=== PATIENT | female | born 1985 | race Caucasian/White ===

== ENCOUNTER 2018-11-01 07:03 | Emergency (ER) | payer MEDICAID ==
[~2018-11-01] VITALS: Ht 162.6 cm; Wt 81.6 kg
[~2018-11-01 07:03] MED LIST: CLIN300C11 PO
[2018-11-01 07:09] VITALS: BP_SYST 11
--- NOTE | 2018-11-01 07:28 | NUR ---
Patient to ER bed 5 to gown for evaluation. Side rails up. Report given to Tara MONTERO.
--- NOTE | 2018-11-01 07:30 | NUR ---
Patient bib her boyfriend. C/o sore throat x 5 days, patient stated that she thinks she has strep throat. Patient also stated that the pain radiates to her right ear. Also, stated that she has been unable to drink or eat. Current vs are 140/77, 98.8, 18, 140/79. Will continue to monitor.
--- NOTE | 2018-11-01 07:36 | NUR ---
ER at bedside examining patient.
--- NOTE | 2018-11-01 07:42 | NUR ---
Patient is currently eating breakfast. Stated that she is not interested in speaking with a social insurance analyst. Appearance is clean. Stated that she only wants her throart pain to go away.
[2018-11-01] MEDS: IPRATROPIUM/ALBUTEROL SULFATE 3 ML AMPUL.NEB (DUONEB) INH ONE (08:06)
[2018-11-01 08:12] LABS: STREPTOCOCCUS A SCREEN (RAPID) NEGATIVE (NEGATIVE)
[2018-11-01 08:25] LABS: INFLUENZA A&B ANTIGEN SCREEN NEGATIVE FOR A & B (NEGATIVE)
[2018-11-01] MEDS: AZITHROMYCIN 250 MG TABLET PO ONE (08:48)
--- NOTE | 2018-11-01 08:50 | NUR ---
Patient was given a sandwich. She has clean clothes and temporary housing. Transportation was arranged for her and her boyfriend. Patient stated that she is able to fill all prescriptions given.
[2018-11-01 09:03] VITALS: BP_SYST 140
--- NOTE | 2018-11-01 09:04 | NUR ---
Patient given written and verbal discharge instructions and verbalizes understanding. ER MD discussed with patient the results and treatment provided. Patient in stable condition. ID arm band removed. Rx of Z-pack and albuterol given. Patient educated on pain management and to follow up with PMD. Pain Scale .Opportunity for questions provided and answered. Medication side effect fact sheet provided.
== END 2018-11-01 09:02 | disposition home or self-care (01) ==
LOC: SED 07:03
DX: O99.511 Diseases of the respiratory system complicating pregnancy, first trimester (principal); O26.891 Other specified pregnancy related conditions, first trimester; J20.9 Acute bronchitis, unspecified; H66.90 Otitis media, unspecified, unspecified ear; F17.210 Nicotine dependence, cigarettes, uncomplicated; I10 Essential (primary) hypertension; Z88.0 Allergy status to penicillin; Z3A.01 Less than 8 weeks gestation of pregnancy
CPT/HCPCS: 71045; 86403; 86710; 87081; 94664; 99284; J7620; Q0144; 36415

== ENCOUNTER 2019-10-25 06:44 | Inpatient (IN) | payer MEDICAID ==
[~2019-10-25] VITALS: Ht 165.1 cm; Wt 90.3 kg
[2019-10-25 06:55] VITALS: BP_SYST 159
[2019-10-25] MEDS ORDERED: IPRATROPIUM/ALBUTEROL SULFATE 3 ML AMPUL.NEB (DUONEB) INH ONE (09:00)
[2019-10-25] MEDS ORDERED: NACL 0.9% 1,000 ML IV ONE (12:00)
[2019-10-25 12:33] LABS: BASOPHILS # (AUTO) 0.1 K/uL (0.0-0.2); BASOPHILS % (AUTO) 0.9 % (0.0-2.0); EOSINOPHILS # (AUTO) 0.1 K/uL (0.0-0.4); HEMATOCRIT 26.2 % (36-48); HEMOGLOBIN 7.9 g/dL (12.0-16.0); LYMPHOCYTES # (AUTO) 1.8 K/uL (1.0-5.5); LYMPHOCYTES % (AUTO) 26.5 % (20.5-51.5); MEAN CORPUSCULAR HEMOGLOBIN 19 pg (27-31); MEAN CORPUSCULAR HGB CONC 30 % (32-36); MEAN CORPUSCULAR VOLUME 62 fL (79.0-98.0); MONOCYTES # (AUTO) 0.6 K/uL (0.0-1.0); MONOCYTES % (AUTO) 8.8 % (1.7-9.3); NEUTROPHILS # (AUTO) 4.4 K/uL (1.8-7.7); NEUTROPHILS % (AUTO) 62.8 % (40.0-70.0); PLATELET COUNT (AUTO) 300 K/uL (130-430); RED BLOOD CELL COUNT(AUTO) 4.23 MIL/uL (4.2-6.2); RED CELL DISTRIBUTION WIDTH 17.9 % (9.0-15.0); WHITE BLOOD COUNT (AUTO) 6.9 K/uL (4.8-10.8)
[2019-10-25] MEDS: AZITHROMYCIN 250 MG in NS 250 ML IV ONE ×2 (12:44→13:16)
[2019-10-25 12:50] LABS: CALCIUM 8.6 mg/dL (8.4-11.0); CREATININE 0.67 mg/dL (0.55-1.30); POTASSIUM 3.7 mmol/L (3.5-5.1)
[2019-10-25 12:55] LABS: ALBUMIN 3.3 g/dL (3.4-4.8); TOTAL BILIRUBIN 0.3 mg/dL (0.0-1.0)
[2019-10-25] MEDS ORDERED: AZITHROMYCIN 500 MG/VIAL (ZITHROMAX) IV ONE (12:59)
[2019-10-25 13:48] LABS: TOTAL IRON BIND. CAPACITY 411 ug/dL (250-450)
[2019-10-25] MEDS ORDERED: NICOTINE 21 MG/24 HR PATCH.TD24 TD ONE (14:00)
[2019-10-25] MEDS ORDERED: MULTIVITAMINS TAB 1 TABLET PO ONE (14:00)
[2019-10-25] MEDS ORDERED: AZITHROMYCIN 1,000 MG in NS 250 ML IV ONE ×2 (14:00→15:30)
[2019-10-25] MEDS ORDERED: cefTRIAXone 1 GM in D5W 50 ML IV ONE (15:00)
[2019-10-25 15:39] VITALS: BP_SYST 129
[2019-10-25] MEDS ORDERED: FLU VACC QS2019-20 36MOS UP/PF 60 MCG/0.5 ML SYRINGE I.M. PRN (15:45)
[2019-10-25 16:23] VITALS: BP_SYST 120
[2019-10-25] MEDS: guaiFENesin/DEXTROMETHORPHAN 10 ML UDC PO PRN (16:23)
[2019-10-25] MEDS: ACETAMINOPHEN 325 MG TABLET PO PRN (16:23)
[2019-10-25] MEDS ORDERED: IPRATROPIUM/ALBUTEROL SULFATE 3 ML AMPUL.NEB (DUONEB) INH PRN (17:00)
[2019-10-25] MEDS ORDERED: IPRATROPIUM/ALBUTEROL SULFATE 3 ML AMPUL.NEB (DUONEB) INH SCH (17:00)
[2019-10-25 17:13] VITALS: BP_SYST 129
[2019-10-25] MEDS: SOD FERRIC GLUC COMPLEX/SUC 125 MG in NS 100 ML IV SCH (18:03)
[2019-10-25] MEDS: IPRATROPIUM/ALBUTEROL SULFATE 3 ML AMPUL.NEB (DUONEB) INH SCH (19:50)
[2019-10-25 20:00] VITALS: BP_SYST 124
[2019-10-25] MEDS: MULTIVITAMINS TAB 1 TABLET PO SCH (22:05)
[2019-10-26 00:31] VITALS: BP_SYST 120
[2019-10-26] MEDS: IPRATROPIUM/ALBUTEROL SULFATE 3 ML AMPUL.NEB (DUONEB) INH SCH ×4 (00:35→19:45)
[2019-10-26] MEDS: ACETAMINOPHEN 325 MG TABLET PO PRN (04:02)
[2019-10-26] MEDS: guaiFENesin/DEXTROMETHORPHAN 10 ML UDC PO PRN (04:09)
[2019-10-26 08:10] VITALS: BP_SYST 113
[2019-10-26] MEDS: MULTIVITAMINS TAB 1 TABLET PO SCH ×2 (08:48→20:34)
[2019-10-26] MEDS: cefTRIAXone 1 GM in D5W 50 ML IV SCH (08:48)
[2019-10-26] MEDS: NICOTINE 21 MG/24 HR PATCH.TD24 TD SCH (08:48)
[2019-10-26] MEDS ORDERED: cefTRIAXone 1 GM in D5W 50 ML IV SCH (09:00)
[2019-10-26 12:50] VITALS: BP_SYST 118
[2019-10-26] MEDS: SOD FERRIC GLUC COMPLEX/SUC 125 MG in NS 100 ML IV SCH (14:48)
[2019-10-26 16:22] VITALS: BP_SYST 122
[2019-10-26 20:30] VITALS: BP_SYST 121
[2019-10-27] MEDS: IPRATROPIUM/ALBUTEROL SULFATE 3 ML AMPUL.NEB (DUONEB) INH SCH ×3 (01:00→13:45)
[2019-10-27 01:01] VITALS: BP_SYST 123
[2019-10-27 06:33] LABS: ALBUMIN 2.9 g/dL (3.4-4.8); CALCIUM 8.8 mg/dL (8.4-11.0); CREATININE 0.6 mg/dL (0.55-1.30)
[2019-10-27 06:47] LABS: BASOPHILS % (AUTO) 0.5 % (0.0-2.0); EOSINOPHILS # (AUTO) 0.1 K/uL (0.0-0.4); EOSINOPHILS % (AUTO) 2.6 % (0.0-4.0); HEMOGLOBIN 7.8 g/dL (12.0-16.0); LYMPHOCYTES # (AUTO) 2.2 K/uL (1.0-5.5); LYMPHOCYTES % (AUTO) 42.6 % (20.5-51.5); MEAN CORPUSCULAR HEMOGLOBIN 19 pg (27-31); MEAN CORPUSCULAR HGB CONC 30 % (32-36); MEAN CORPUSCULAR VOLUME 63 fL (79.0-98.0); MONOCYTES # (AUTO) 0.5 K/uL (0.0-1.0); NEUTROPHILS # (AUTO) 2.2 K/uL (1.8-7.7); NEUTROPHILS % (AUTO) 44.3 % (40.0-70.0); PLATELET COUNT (AUTO) 293 K/uL (130-430); RED BLOOD CELL COUNT(AUTO) 4.15 MIL/uL (4.2-6.2); RED CELL DISTRIBUTION WIDTH 17.8 % (9.0-15.0); WHITE BLOOD COUNT (AUTO) 5.1 K/uL (4.8-10.8)
[2019-10-27 06:55] LABS: TOTAL BILIRUBIN 0.2 mg/dL (0.0-1.0)
[2019-10-27 08:15] VITALS: BP_SYST 130
[2019-10-27] MEDS: cefTRIAXone 1 GM in D5W 50 ML IV SCH (08:53)
[2019-10-27] MEDS: MULTIVITAMINS TAB 1 TABLET PO SCH (08:53)
[2019-10-27] MEDS: NICOTINE 21 MG/24 HR PATCH.TD24 TD SCH (08:53)
[2019-10-27 12:27] VITALS: BP_SYST 128
[2019-10-27] MEDS ORDERED: DOXY100C PO (14:47)
[2019-10-27] MEDS ORDERED: IPRA4AER INH (14:49)
[2019-10-27] MEDS ORDERED: GUAI5SYR PO (14:49)
[2019-10-27] MEDS ORDERED: FERR240T5 PO (14:52)
[2019-10-27] MEDS ORDERED: MULT-1117 PO (14:53)
[2019-10-27] MEDS: SOD FERRIC GLUC COMPLEX/SUC 125 MG in NS 100 ML IV SCH (15:30)
[2019-10-27 16:32] VITALS: BP_SYST 122
[2019-10-27 17:07] VITALS: BP_SYST 120
== END 2019-10-27 17:35 | disposition home or self-care (01) | DRG 139 ==
LOC: SED 06:44 → SMU 13:18
PROVIDERS: ADMIT Internal Medicine; ATTEND Internal Medicine
DX: J18.9 Pneumonia, unspecified organism (principal); E44.1 Mild protein-calorie malnutrition; D50.9 Iron deficiency anemia, unspecified; F19.10 Other psychoactive substance abuse, uncomplicated; E66.9 Obesity, unspecified; I10 Essential (primary) hypertension; J45.909 Unspecified asthma, uncomplicated; Z88.0 Allergy status to penicillin; Z79.2 Long term (current) use of antibiotics; Z59.0 Homelessness; Z56.0 Unemployment, unspecified; Z68.33 Body mass index [BMI] 33.0-33.9, adult
CPT/HCPCS: 36415; 71045; 71046-TC; 80053; 83540-TC; 83550-TC; 83605; 84702-TC; 84703; 85025; 87040-TC; 94640; 96365; 99285; J0456; J0696; J2916; J7050; J7060

== ENCOUNTER 2021-01-26 02:53 | Emergency (ER) | payer MEDICAID ==
[~2021-01-26] VITALS: Ht 165.1 cm; Wt 90.7 kg
[~2021-01-26 02:53] MED LIST changes: -CLIN300C11 PO; +DOXY100C PO; +FERR240T5 PO; +GUAI5SYR PO; +IPRA4AER INH; +MULT-1117 PO
--- NOTE | 2021-01-26 03:12 | NUR ---
Patient to ER [address] to [facility] for evaluation. Side rails up.
[2021-01-26 03:15] VITALS: BP_SYST 124
--- NOTE | 2021-01-26 03:20 | NUR ---
Dr. Banerjee [facility] for pt eval
--- NOTE | 2021-01-26 03:23 | NUR ---
Pt BIB family to ED C/O 2 active abscesses on R Shoulder + L lower back, Hx IV drug abuse. Has been hospitalized for similar before. VSS no s/s of acute distress Resting on gurney
[2021-01-26] MEDS ORDERED: cephALEXin 500 MG CAPSULE PO ONE (03:30)
[2021-01-26] MEDS ORDERED: SULFAMETHOXAZOLE/TRIMETHOPR DS 1 TABLET PO ONE (03:30)
[2021-01-26] MEDS ORDERED: IBUPROFEN 600 MG TABLET PO ONE (03:30)
[2021-01-26] MEDS ORDERED: SULFAMETHOXAZOLE/TRIMETHOPR DS 1 TABLET ONE (03:31)
--- NOTE | 2021-01-26 03:31 | NUR ---
Pt tolerated PO meds well, VSS no s/s of acute distress
[2021-01-26 03:32] VITALS: BP_SYST 138
[2021-01-26] MEDS ORDERED: cephALEXin 500 MG CAPSULE ONE (03:32)
[2021-01-26] MEDS ORDERED: IBUPROFEN 600 MG TABLET ONE (03:33)
--- NOTE | 2021-01-26 03:33 | NUR ---
Patient given written and verbal discharge instructions and verbalizes understanding. ER MD discussed with patient the results and treatment provided. Patient in stable condition. ID arm band removed. Rx of Bactrim DS, Keflex, Motrin given. Patient educated on pain management and to follow up with PMD. Pain Scale 0/10 Opportunity for questions provided and answered. Medication side effect fact sheet provided.
[2021-01-26] MEDS ORDERED: HYDR-3917 PO (03:38)
[2021-01-26] MEDS ORDERED: SULF1TAB47 PO (03:38)
[2021-01-26] MEDS ORDERED: IBUP-1969 PO (03:38)
[2021-01-26] MEDS ORDERED: CEPH250C PO (03:38)
== END 2021-01-26 03:32 | disposition home or self-care (01) ==
LOC: SED 02:53
DX: L03.312 Cellulitis of back [any part except buttock and flank] (principal); L03.319 Cellulitis of trunk, unspecified; I10 Essential (primary) hypertension; J44.9 Chronic obstructive pulmonary disease, unspecified; Z88.0 Allergy status to penicillin; Z79.899 Other long term (current) drug therapy
CPT/HCPCS: 99284

== ENCOUNTER 2021-06-27 19:09 | Emergency (ER) | payer MEDICAID ==
[~2021-06-27 19:09] MED LIST changes: +CEPH250C PO; +HYDR-3917 PO; +IBUP-1969 PO; +SULF1TAB47 PO
--- NOTE | 2021-06-27 20:30 | NUR ---
Patient left without being seen. No further treatment provided . ER MD aware
== END 2021-06-27 20:30 | disposition left against medical advice (07) ==
LOC: SED 19:09
DX: L02.91 Cutaneous abscess, unspecified (principal); Z53.21 Procedure and treatment not carried out due to patient leaving prior to being seen by health care provider

== ENCOUNTER 2022-07-14 11:12 | Emergency (ER) | payer MEDICAID ==
[~2022-07-14] VITALS: Ht 165.1 cm; Wt 97.5 kg
[2022-07-14 13:25] VITALS: BP_SYST 129
[2022-07-14] MEDS ORDERED: ALBUTEROL SULFATE 0.083% 2.5 MG/3 ML VIAL.NEB INH ONE ×2 (15:00→17:00)
[2022-07-14] MEDS ORDERED: predniSONE 20 MG TABLET PO ONE (15:00)
[2022-07-14] MEDS ORDERED: IPRATROPIUM BROM 0.5 MG/2.5 ML VIAL.NEB (ATROVENT) INH ONE (15:00)
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
--- NOTE | 2022-07-14 15:11 | NUR ---
MD DR BECERRA AT BEDSIDE
[2022-07-14] MEDS ORDERED: GUAI5SYR PO (17:09)
[2022-07-14] MEDS ORDERED: PRED20TA PO (17:09)
[2022-07-14] MEDS ORDERED: ALBMDI INH (17:09)
[2022-07-14 18:48] VITALS: BP_SYST 129
--- NOTE | 2022-07-14 18:49 | NUR ---
Patient given written and verbal discharge instructions and verbalizes understanding. ER MD DR BECERRA discussed with patient the results and treatment provided. Patient in stable condition. ID arm band removed. Rx of PREDINSONE, ALBUTEROL given. Patient educated on pain management and to follow up with PMD. Pain Scale 0/10. Opportunity for questions provided and answered. Medication side effect fact sheet provided.
== END 2022-07-14 18:48 | disposition home or self-care (01) ==
LOC: SED 11:12
DX: J45.901 Unspecified asthma with (acute) exacerbation (principal); I10 Essential (primary) hypertension; R06.02 Shortness of breath; R05.9 Cough, unspecified; F12.90 Cannabis use, unspecified, uncomplicated; F17.200 Nicotine dependence, unspecified, uncomplicated; Z88.0 Allergy status to penicillin; Z79.899 Other long term (current) drug therapy; Z20.822 Contact with and (suspected) exposure to COVID-19
CPT/HCPCS: 36415; 94640; 99284; 87804 ×2; 87426; J7512; J7613; 99283

== ENCOUNTER 2023-06-18 01:59 | Inpatient (IN) | payer MEDICAID ==
[2023-06-18] VITALS (8 sets, daily range): BP systolic 140–151; PULSE 80–113; RESP 18–28; TEMP 98.2–98.9; O2SAT 87–95
[~2023-06-18] VITALS: Ht 165.1 cm; Wt 95.3 kg
[~2023-06-18 01:59] MED LIST changes: +ALBMDI INH; +PRED20TA PO
[2023-06-18] MEDS ORDERED: IPRATROPIUM BROM 0.5 MG/2.5 ML VIAL.NEB (ATROVENT) INH ONE (02:15)
[2023-06-18] MEDS ORDERED: ONDANSETRON HCL 4 MG/2 ML VIAL IVP ONE (02:15)
[2023-06-18] MEDS ORDERED: ASPIRIN 81 MG TAB.CHEW PO ONE (02:15)
[2023-06-18] MEDS ORDERED: ALBUTEROL SULFATE 0.083% 2.5 MG/3 ML VIAL.NEB INH ONE (02:15)
[2023-06-18] MEDS ORDERED: MORPHINE 4 MG INJ. 4 MG/ML VIAL IVP ONE (02:15)
[2023-06-18] MEDS ORDERED: methylPREDNISolone SOD SUCC/PF 62.5 MG/ML VIAL IVP ONE ×2 (02:15→10:30)
[2023-06-18] MEDS ORDERED: IPRATROPIUM/ALBUTEROL SULFATE 3 ML AMPUL.NEB (DUONEB) ONE (02:16)
[2023-06-18] MEDS ORDERED: ASPIRIN 81 MG TABLET(ECOTRIN) ONE ×2 (02:27→02:37)
[2023-06-18 02:54] LABS: BASOPHILS # (AUTO) 0.1 K/uL (0.0-0.2); BASOPHILS % (AUTO) 0.7 % (0.0-2.0); EOSINOPHILS # (AUTO) 0.3 K/uL (0.0-0.4); EOSINOPHILS % (AUTO) 3.8 % (0.0-4.0); HEMATOCRIT 30.9 % (36-48); HEMOGLOBIN 9.1 g/dL (12.0-16.0); LYMPHOCYTES # (AUTO) 1.2 K/uL (1.0-5.5); LYMPHOCYTES % (AUTO) 14.9 % (20.5-51.5); MEAN CORPUSCULAR HEMOGLOBIN 18 pg (27-31); MEAN CORPUSCULAR HGB CONC 29 % (32-36); MEAN CORPUSCULAR VOLUME 61 fL (79.0-98.0); MONOCYTES # (AUTO) 0.6 K/uL (0.0-1.0); MONOCYTES % (AUTO) 7.2 % (1.7-9.3); NEUTROPHILS # (AUTO) 6.1 K/uL (1.8-7.7); NEUTROPHILS % (AUTO) 73.4 % (40.0-70.0); PLATELET COUNT (AUTO) 217 K/uL (130-430); RED CELL DISTRIBUTION WIDTH 18.4 % (9.0-15.0); WHITE BLOOD COUNT (AUTO) 8.4 K/uL (4.8-10.8)
[2023-06-18 03:26] LABS: INFLUENZA TYPE A Negative (NEGATIVE); INFLUENZA TYPE B NEGATIVE (NEGATIVE)
[2023-06-18 04:00] LABS: ALANINE AMINOTRANSFERASE 28 U/L (12-78); ALBUMIN 3.4 g/dL (3.4-4.8); ANION GAP 8 (5-15); ASPARTATE AMINOTRANSFERASE 23 U/L (10-37); CALCIUM 8.9 mg/dL (8.4-11.0); CARBON DIOXIDE 28 mmol/L (23-29); CHLORIDE 101 mmol/L (98-107); CREATININE 0.72 mg/dL (0.55-1.30); GFR AFRICAN AMERICAN 117 mL/min (>90); GFR NON AFRICAN-AMERICAN 97 mL/min (>90); GLUCOSE 120 mg/dL (74-106); POTASSIUM 3.9 mmol/L (3.5-5.1); SODIUM SERUM 137 mmol/L (136-145); TOTAL BILIRUBIN 0.5 mg/dL (0.0-1.0); TOTAL PROTEIN, SERUM 7.9 g/dL (6.4-8.3); UREA NITROGEN, BLOOD 11 mg/dL (8-21)
[2023-06-18] MEDS ORDERED: KETOROLAC TROMETHAMINE 30 MG VIAL IVP ONE (05:00)
[2023-06-18] MEDS ORDERED: IPRATROPIUM/ALBUTEROL SULFATE 3 ML AMPUL.NEB (DUONEB) INH ONE (05:00)
[2023-06-18 07:42] LABS: BLOOD GAS HCO3 23.2 mmol/L (21.0-27.0); BLOOD GAS PCO2 40.9 mmHg (35.0-45.0); BLOOD GAS PH 7.371 (7.350-7.450)
[2023-06-18 08:03] LABS: ABG O2 SAT% ESTIMATE 85.8 % (94.0-100.0); ALLEN'S TEST POSITIVE (P); BLOOD GAS PO2 51.8 mmHg (75.0-100.0)
[2023-06-18] MEDS ORDERED: NICOTINE 21 MG/24 HR PATCH.TD24 TD SCH (08:45)
[2023-06-18] MEDS ORDERED: IPRATROPIUM/ALBUTEROL SULFATE 3 ML AMPUL.NEB (DUONEB) INH SCH (09:30)
[2023-06-18] MEDS: methylPREDNISolone SOD SUCC/PF 62.5 MG/ML VIAL IVP SCH ×2 (11:36→17:01)
[2023-06-18] MEDS ORDERED: IBUPROFEN 600 MG TABLET PO PRN (13:45)
[2023-06-18] MEDS ORDERED: guaiFENesin/DEXTROMETHORPHAN 118 ML PO PRN (13:45)
[2023-06-18] MEDS ORDERED: ALBUTEROL SULFATE 0.083% 2.5 MG/3 ML VIAL.NEB INH PRN (14:00)
[2023-06-18] MEDS: HYDROcodone/ACETAMIN 5-325 MG TAB (NORCO/ VICODIN) PO PRN (14:25)
[2023-06-18] MEDS: IPRATROPIUM/ALBUTEROL SULFATE 3 ML AMPUL.NEB (DUONEB) INH SCH ×2 (14:50→19:49)
[2023-06-18] MEDS: cephALEXin 250 MG CAPSULE PO SCH ×2 (14:54→20:24)
[2023-06-18] MEDS ORDERED: guaiFENesin/DEXTROMETHORPHAN 10 ML UDC PO PRN ×2 (15:00)
[2023-06-18] MEDS: DOXYCYCLINE HYCLATE 100 MG CAPSULE PO SCH (20:24)
[2023-06-19] VITALS (9 sets, daily range): BP systolic 134–160; PULSE 76–90; RESP 16–20; TEMP 96.5–98.7; O2SAT 92–98
[2023-06-19] MEDS: methylPREDNISolone SOD SUCC/PF 62.5 MG/ML VIAL IVP SCH ×5 (00:21→23:32)
[2023-06-19] MEDS: IPRATROPIUM/ALBUTEROL SULFATE 3 ML AMPUL.NEB (DUONEB) INH SCH ×4 (07:17→19:46)
[2023-06-19 09:24] LABS: CALCIUM 9.3 mg/dL (8.4-11.0); CREATININE 0.65 mg/dL (0.55-1.30); POTASSIUM 3.8 mmol/L (3.5-5.1)
[2023-06-19 09:25] LABS: BASOPHILS % (AUTO) 0.1 % (0.0-2.0); HEMATOCRIT 30.2 % (36-48); HEMOGLOBIN 8.6 g/dL (12.0-16.0); LYMPHOCYTES # (AUTO) 0.5 K/uL (1.0-5.5); LYMPHOCYTES % (AUTO) 4.1 % (20.5-51.5); MEAN CORPUSCULAR HEMOGLOBIN 17 pg (27-31); MEAN CORPUSCULAR HGB CONC 28 % (32-36); MEAN CORPUSCULAR VOLUME 61 fL (79.0-98.0); MONOCYTES # (AUTO) 0.3 K/uL (0.0-1.0); MONOCYTES % (AUTO) 2.3 % (1.7-9.3); NEUTROPHILS # (AUTO) 11.2 K/uL (1.8-7.7); NEUTROPHILS % (AUTO) 93.5 % (40.0-70.0); RED BLOOD CELL COUNT(AUTO) 4.92 MIL/uL (4.2-6.2)
[2023-06-19 09:29] LABS: ALBUMIN 3.1 g/dL (3.4-4.8); TOTAL BILIRUBIN 0.3 mg/dL (0.0-1.0); TOTAL PROTEIN, SERUM 7.4 g/dL (6.4-8.3)
[2023-06-19] MEDS: cephALEXin 250 MG CAPSULE PO SCH ×3 (10:05→21:41)
[2023-06-19] MEDS: MULTIVITAMINS TAB 1 TABLET PO SCH (10:05)
[2023-06-19] MEDS: DOXYCYCLINE HYCLATE 100 MG CAPSULE PO SCH ×2 (10:05→21:36)
[2023-06-19] MEDS: predniSONE 20 MG TABLET PO SCH (10:05)
[2023-06-19 11:16] LABS: ANISOCYTOSIS 2+; HYPOCHROMASIA 2+
[2023-06-19 11:17] LABS: PLATELET COUNT (AUTO) 291 K/uL (130-430)
[2023-06-19] MEDS ORDERED: NICOTINE 14 MG/24 HR PATCH.TD24 TD ONE (13:30)
[2023-06-19] MEDS: HYDROcodone/ACETAMIN 5-325 MG TAB (NORCO/ VICODIN) PO PRN ×2 (13:46→23:48)
[2023-06-19] MEDS ORDERED: traMADol HCL HCL 50 MG TABLET (ULTRAM) PO PRN (17:15)
[2023-06-19] MEDS: ONDANSETRON HCL 4 MG/2 ML VIAL IVP PRN (18:42)
[2023-06-19] MEDS: LORazepam 2 MG/ML VIAL IVP PRN (19:11)
[2023-06-19] MEDS ORDERED: cephALEXin 500 MG CAPSULE ONE (21:38)
[2023-06-20] VITALS (9 sets, daily range): BP systolic 124–156; PULSE 74–91; RESP 16–20; TEMP 97.3–99.1; O2SAT 87–97
[2023-06-20] MEDS: LORazepam 2 MG/ML VIAL IVP PRN ×4 (05:43→23:32)
[2023-06-20 06:30] LABS: CALCIUM 9.1 mg/dL (8.4-11.0); CREATININE 0.6 mg/dL (0.55-1.30); POTASSIUM 4.1 mmol/L (3.5-5.1)
[2023-06-20 06:32] LABS: BASOPHILS % (AUTO) 0.2 % (0.0-2.0); HEMATOCRIT 30.4 % (36-48); HEMOGLOBIN 8.7 g/dL (12.0-16.0); LYMPHOCYTES # (AUTO) 0.6 K/uL (1.0-5.5); LYMPHOCYTES % (AUTO) 3.9 % (20.5-51.5); MEAN CORPUSCULAR HEMOGLOBIN 17 pg (27-31); MEAN CORPUSCULAR HGB CONC 29 % (32-36); MEAN CORPUSCULAR VOLUME 61 fL (79.0-98.0); MONOCYTES # (AUTO) 0.4 K/uL (0.0-1.0); NEUTROPHILS % (AUTO) 92.9 % (40.0-70.0); PLATELET COUNT (AUTO) 343 K/uL (130-430); RED BLOOD CELL COUNT(AUTO) 4.98 MIL/uL (4.2-6.2); RED CELL DISTRIBUTION WIDTH 18.5 % (9.0-15.0)
[2023-06-20] MEDS: methylPREDNISolone SOD SUCC/PF 62.5 MG/ML VIAL IVP SCH ×4 (06:35→23:13)
[2023-06-20] MEDS: IPRATROPIUM/ALBUTEROL SULFATE 3 ML AMPUL.NEB (DUONEB) INH SCH ×4 (07:24→19:47)
[2023-06-20] MEDS: predniSONE 20 MG TABLET PO SCH (10:12)
[2023-06-20] MEDS: DOXYCYCLINE HYCLATE 100 MG CAPSULE PO SCH ×2 (10:12→21:02)
[2023-06-20] MEDS: MULTIVITAMINS TAB 1 TABLET PO SCH (10:12)
[2023-06-20] MEDS: NICOTINE 14 MG/24 HR PATCH.TD24 TD SCH (10:13)
[2023-06-20] MEDS: cephALEXin 250 MG CAPSULE PO SCH ×3 (10:19→21:02)
[2023-06-20] MEDS: ONDANSETRON HCL 4 MG/2 ML VIAL IVP PRN (13:21)
[2023-06-20] MEDS: HYDROcodone/ACETAMIN 5-325 MG TAB (NORCO/ VICODIN) PO PRN (21:55)
[2023-06-21] VITALS (8 sets, daily range): BP systolic 126–150; PULSE 76–96; RESP 18–20; TEMP 97.6–99.2; O2SAT 91–100
[2023-06-21] MEDS: LORazepam 2 MG/ML VIAL IVP PRN (05:13)
[2023-06-21 05:18] LABS: BASOPHILS % (AUTO) 0.1 % (0.0-2.0); HEMATOCRIT 31.2 % (36-48); LYMPHOCYTES # (AUTO) 0.7 K/uL (1.0-5.5); LYMPHOCYTES % (AUTO) 5.2 % (20.5-51.5); MEAN CORPUSCULAR HEMOGLOBIN 17 pg (27-31); MEAN CORPUSCULAR HGB CONC 29 % (32-36); MEAN CORPUSCULAR VOLUME 60 fL (79.0-98.0); MONOCYTES # (AUTO) 0.5 K/uL (0.0-1.0); MONOCYTES % (AUTO) 3.7 % (1.7-9.3); NEUTROPHILS # (AUTO) 11.7 K/uL (1.8-7.7); PLATELET COUNT (AUTO) 301 K/uL (130-430); RED BLOOD CELL COUNT(AUTO) 5.17 MIL/uL (4.2-6.2); RED CELL DISTRIBUTION WIDTH 18.3 % (9.0-15.0); WHITE BLOOD COUNT (AUTO) 12.8 K/uL (4.8-10.8)
[2023-06-21] MEDS: methylPREDNISolone SOD SUCC/PF 62.5 MG/ML VIAL IVP SCH ×3 (05:29→18:00)
[2023-06-21 05:49] LABS: CREATININE 0.75 mg/dL (0.55-1.30); POTASSIUM 3.6 mmol/L (3.5-5.1)
[2023-06-21] MEDS: HYDROcodone/ACETAMIN 5-325 MG TAB (NORCO/ VICODIN) PO PRN ×2 (06:23→21:16)
[2023-06-21] MEDS: IPRATROPIUM/ALBUTEROL SULFATE 3 ML AMPUL.NEB (DUONEB) INH SCH ×4 (08:02→19:56)
[2023-06-21] MEDS: MULTIVITAMINS TAB 1 TABLET PO SCH (09:35)
[2023-06-21] MEDS: cephALEXin 250 MG CAPSULE PO SCH ×3 (09:35→21:15)
[2023-06-21] MEDS: NICOTINE 14 MG/24 HR PATCH.TD24 TD SCH (09:35)
[2023-06-21] MEDS: DOXYCYCLINE HYCLATE 100 MG CAPSULE PO SCH ×2 (09:35→21:15)
[2023-06-21] MEDS: predniSONE 20 MG TABLET PO SCH (09:35)
[2023-06-22] MEDS: methylPREDNISolone SOD SUCC/PF 62.5 MG/ML VIAL IVP SCH ×2 (00:15→06:30)
[2023-06-22 00:20] VITALS: BP_SYST 168; PULSE 84; RESP 20; TEMP 97.9; O2SAT 96
[2023-06-22] MEDS: LORazepam 2 MG/ML VIAL IVP PRN (00:20)
[2023-06-22 04:15] VITALS: O2SAT 98
[2023-06-22] MEDS ORDERED: cephALEXin 500 MG CAPSULE PO SCH (09:00)
== END 2023-06-22 07:00 | disposition left against medical advice (07) | DRG 141 ==
LOC: SED 01:59 → SMU 09:18
PROVIDERS: ADMIT Internal Medicine; ATTEND Internal Medicine
DX: J45.901 Unspecified asthma with (acute) exacerbation (principal); J96.01 Acute respiratory failure with hypoxia; R65.11 Systemic inflammatory response syndrome (SIRS) of non-infectious origin with acute organ dysfunction; F17.200 Nicotine dependence, unspecified, uncomplicated; I10 Essential (primary) hypertension; J44.89 Other specified chronic obstructive pulmonary disease; Z68.34 Body mass index [BMI] 34.0-34.9, adult; Z88.0 Allergy status to penicillin; Z79.899 Other long term (current) drug therapy
CPT/HCPCS: 36415; 36600; 71045; 80048; 80053; 82803; 83880; 84484; 85025; 93005; 94640; 94760; 96374; 96375; 99285; J1885; J2060; J2405; J2930; J7512

== ENCOUNTER 2024-05-14 18:51 | Inpatient (IN) | payer MEDICAID, OTHER ==
[~2024-05-14] VITALS: Ht 165.1 cm; Wt 105.7 kg
[2024-05-14 19:29] VITALS: BP_SYST 169; PULSE 92; RESP 20; TEMP 98.4; O2SAT 91
[2024-05-14 20:02] LABS: BASOPHILS # (AUTO) 0.1 K/uL (0.0-0.2); EOSINOPHILS # (AUTO) 0.2 K/uL (0.0-0.4); MEAN CORPUSCULAR HGB CONC 29 % (32-36)
[2024-05-14 20:13] LABS: BASOPHILS % (AUTO) 1.1 % (0.0-2.0); EOSINOPHILS % (AUTO) 2.2 % (0.0-4.0); HEMATOCRIT 28.3 % (36-48); HEMOGLOBIN 8.3 g/dL (12.0-16.0); LYMPHOCYTES # (AUTO) 1.8 K/uL (1.0-5.5); LYMPHOCYTES % (AUTO) 17.7 % (20.5-51.5); MEAN CORPUSCULAR HEMOGLOBIN 17 pg (27-31); MEAN CORPUSCULAR VOLUME 58 fL (79.0-98.0); MONOCYTES # (AUTO) 0.9 K/uL (0.0-1.0); NEUTROPHILS # (AUTO) 7.3 K/uL (1.8-7.7); PLATELET COUNT (AUTO) 115 K/uL (130-430); RED BLOOD CELL COUNT(AUTO) 4.85 MIL/uL (4.2-6.2); RED CELL DISTRIBUTION WIDTH 19.1 % (9.0-15.0); WHITE BLOOD COUNT (AUTO) 10.4 K/uL (4.8-10.8)
[2024-05-14] MEDS: ENALAPRILAT DIHYDRATE 1.25 MG/ML VIAL IVP ONE (20:15)
[2024-05-14 20:34] LABS: ALANINE AMINOTRANSFERASE 32 U/L (12-78); ALBUMIN 3.4 g/dL (3.4-4.8); ANION GAP 11 (5-15); ASPARTATE AMINOTRANSFERASE 32 U/L (10-37); BILIRUBIN,DIRECT 0.3 mg/dL (0.0-0.3); CALCIUM 8.7 mg/dL (8.4-11.0); CARBON DIOXIDE 25 mmol/L (23-29); CHLORIDE 104 mmol/L (98-107); CREATINE KINASE, TOTAL 49 U/L (26-192); CREATININE 1.02 mg/dL (0.55-1.30); GFR AFRICAN AMERICAN 78 mL/min (>90); GFR NON AFRICAN-AMERICAN 64 mL/min (>90); GLUCOSE 87 mg/dL (74-106); POTASSIUM 4.1 mmol/L (3.5-5.1); SODIUM SERUM 140 mmol/L (136-145); TOTAL BILIRUBIN 2.2 mg/dL (0.0-1.0); TOTAL PROTEIN, SERUM 7.1 g/dL (6.4-8.3); UREA NITROGEN, BLOOD 14 mg/dL (8-21)
[2024-05-14] MEDS: FUROSEMIDE 40 MG/4 ML VIAL IVP ONE (20:41)
[2024-05-14 21:01] LABS: ANISOCYTOSIS 1+; HYPOCHROMASIA 2+; OVALOCYTES MODERATE
[2024-05-14 21:21] LABS: BARBITURATE, URINE NEGATIVE (NEG <=200); BENZODIAZEPINE, URINE NEGATIVE (NEG <=150); CANNABINOID, URINE POSITIVE (NEG <=50); COCAINE, URINE NEGATIVE (NEG <=150); METHAMPHETAMINES SCREEN,URINE POSITIVE (NEG <=500); OPIATE, URINE NEGATIVE (NEG <=100); PHENCYCLIDINE SCREEN,URINE NEGATIVE (NEG <=25); UR TRICYCLIC ANTIDEPRESSANTS NEGATIVE (NEG <=300); URINE AMPHETAMINE POSITIVE (NEG <=500); URINE METHADONE NEGATIVE (NEG <=200); URINE OXYCODONE SCREEN NEGATIVE (NEG <=100)
[2024-05-14] MEDS ORDERED: ALBMDI INH (21:21)
[2024-05-14] MEDS: ALBUTEROL SULFATE 0.083% 2.5 MG/3 ML VIAL.NEB INH ONE (22:07)
[2024-05-14] MEDS: ENOXAPARIN SODIUM 100 MG/ML SYRINGE SUBCUT ONE (22:28)
[2024-05-15] VITALS (7 sets, daily range): BP systolic 117–147; PULSE 96–107; RESP 16–22; TEMP 96.1–98.3; O2SAT 90–99
[2024-05-15] MEDS ORDERED: ONDANSETRON HCL 4 MG/2 ML VIAL IVP PRN (02:15)
[2024-05-15 06:31] LABS: BASOPHILS # (AUTO) 0.1 K/uL (0.0-0.2); BASOPHILS % (AUTO) 0.8 % (0.0-2.0); EOSINOPHILS # (AUTO) 0.2 K/uL (0.0-0.4); EOSINOPHILS % (AUTO) 2.2 % (0.0-4.0); HEMATOCRIT 27.8 % (36-48); HEMOGLOBIN 8.1 g/dL (12.0-16.0); LYMPHOCYTES # (AUTO) 2.6 K/uL (1.0-5.5); LYMPHOCYTES % (AUTO) 23.8 % (20.5-51.5); MEAN CORPUSCULAR HEMOGLOBIN 17 pg (27-31); MEAN CORPUSCULAR HGB CONC 29 % (32-36); MEAN CORPUSCULAR VOLUME 58 fL (79.0-98.0); MONOCYTES # (AUTO) 1.1 K/uL (0.0-1.0); MONOCYTES % (AUTO) 10.6 % (1.7-9.3); NEUTROPHILS # (AUTO) 6.8 K/uL (1.8-7.7); NEUTROPHILS % (AUTO) 62.6 % (40.0-70.0); PLATELET COUNT (AUTO) 129 K/uL (130-430); RED BLOOD CELL COUNT(AUTO) 4.82 MIL/uL (4.2-6.2); RED CELL DISTRIBUTION WIDTH 19.1 % (9.0-15.0); WHITE BLOOD COUNT (AUTO) 10.8 K/uL (4.8-10.8)
[2024-05-15 07:07] LABS: ALBUMIN 3.3 g/dL (3.4-4.8); CALCIUM 8.6 mg/dL (8.4-11.0); CREATININE 1.01 mg/dL (0.55-1.30); POTASSIUM 3.7 mmol/L (3.5-5.1); TOTAL BILIRUBIN 2.2 mg/dL (0.0-1.0); TOTAL PROTEIN, SERUM 6.9 g/dL (6.4-8.3)
[2024-05-15 08:32] LABS: ALBUMIN 3.1 g/dL (3.4-4.8); BILIRUBIN,DIRECT 0.3 mg/dL (0.0-0.3); TOTAL BILIRUBIN 2.4 mg/dL (0.0-1.0); TOTAL PROTEIN, SERUM 6.6 g/dL (6.4-8.3)
[2024-05-15] MEDS: FUROSEMIDE 20 MG/2 ML VIAL IVP SCH (08:43)
[2024-05-15] MEDS: NICOTINE 21 MG/24 HR PATCH.TD24 TD SCH (08:43)
[2024-05-15] MEDS: NEPHROVITE, (FOLIC ACID/VITAMIN B COMP W-C 1 TAB) PO SCH (10:10)
[2024-05-15] MEDS: FERROUS SULFATE 325 MG TABLET.DR PO SCH (10:10)
[2024-05-15] MEDS: HEPARIN SODIUM,PORCINE 5,000 UNITS/ML VIAL SUBCUT SCH (10:11)
[2024-05-15] MEDS ORDERED: LORazepam 2 MG/ML VIAL IVP PRN (10:15)
[2024-05-15 13:43] LABS: TOTAL IRON BIND. CAPACITY 457 ug/dL (250-450)
[2024-05-15] MEDS: *HEPARIN PER PHARMACY XX ONE (14:15)
[2024-05-15] MEDS ORDERED: HEPARIN 25,000 UNITS/D5W 250ML 250 ML IV PRN (14:15)
[2024-05-15] MEDS: ATORVASTATIN 20 MG TABLET PO ONE (14:41)
[2024-05-15] MEDS ORDERED: iohexoL 350 mgI/mL, 100 ML INFUS..BTL IV ONE (15:22)
[2024-05-15] MEDS ORDERED: HEPARIN SODIUM,PORCINE 3000 UNITS/0.6 ML BOLUS IVP PRN (16:45)
[2024-05-15] MEDS ORDERED: HEPARIN SODIUM,PORCINE 2000 UNITS/0.4 ML BOLUS IVP PRN (16:45)
[2024-05-15] MEDS ORDERED: HEPARIN 25,000 UNITS in 250 ML PREMIX IV PRN (17:00)
[2024-05-15] MEDS: IPRATROPIUM/ALBUTEROL SULFATE 3 ML AMPUL.NEB (DUONEB) INH PRN (17:21)
[2024-05-15] MEDS: *LOVENOX 1MG/KG Q12H/PHARMACY XX ONE (17:45)
[2024-05-15] MEDS: NICOTINE 21 MG/24 HR PATCH.TD24 TD ONE (17:48)
[2024-05-15] MEDS: LORazepam 2 MG/ML VIAL IVP PRN (17:48)
[2024-05-15] MEDS: SOD FERRIC GLUC COMPLEX/SUC 125 MG in NS 100 ML IV SCH (17:49)
[2024-05-15] MEDS: ENOXAPARIN SODIUM 120 MG/0.8 ML SYRINGE SUBCUT SCH (20:36)
[2024-05-15] MEDS: MORPHINE 2 MG/ML INJ. SYRINGE IVP PRN (20:37)
[2024-05-16] VITALS (9 sets, daily range): BP systolic 106–143; PULSE 54–104; RESP 18–20; TEMP 97–98.7; O2SAT 91–99
[2024-05-16 01:33] LABS: HCG,QUAL RESULT NEGATIVE (NEGATIVE)
[2024-05-16 01:39] LABS: BILIRUBIN,URINE NEGATIVE (NEGATIVE); BLOOD, URINE NEGATIVE (NEGATIVE); CLARITY/URINE CLEAR (CLEAR); COLOR,URINE YELLOW (YELLOW); GLUCOSE,URINE NEGATIVE (NEGATIVE); KETONES,URINE NEGATIVE (NEGATIVE); LEUKOCYTE ESTERASE ,URINE NEGATIVE (NEGATIVE); NITRITE, URINE NEGATIVE (NEGATIVE); PH,URINE 6.5 (5.0-8.0); PROTEIN URINE NEGATIVE (NEGATIVE)
[2024-05-16 09:06] LABS: HEPATITIS A AB, IgM Negative (Negative); HEPATITIS B CORE AB, IgM Negative (Negative); HEPATITIS B SURFACE AG Negative (Negative); HEPATITIS C VIRUS AB Non Reactive (Non Reactive)
[2024-05-16] MEDS: NICOTINE 21 MG/24 HR PATCH.TD24 TD SCH (09:07)
[2024-05-16] MEDS: ATORVASTATIN 20 MG TABLET PO SCH (09:07)
[2024-05-16 12:09] LABS: BASOPHILS # (AUTO) 0.1 K/uL (0.0-0.2); BASOPHILS % (AUTO) 0.7 % (0.0-2.0); EOSINOPHILS # (AUTO) 0.2 K/uL (0.0-0.4); EOSINOPHILS % (AUTO) 1.5 % (0.0-4.0); HEMOGLOBIN 8.6 g/dL (12.0-16.0); LYMPHOCYTES # (AUTO) 1.8 K/uL (1.0-5.5); LYMPHOCYTES % (AUTO) 16.6 % (20.5-51.5); MEAN CORPUSCULAR HEMOGLOBIN 16 pg (27-31); MEAN CORPUSCULAR HGB CONC 29 % (32-36); MEAN CORPUSCULAR VOLUME 58 fL (79.0-98.0); MONOCYTES # (AUTO) 0.9 K/uL (0.0-1.0); MONOCYTES % (AUTO) 8.6 % (1.7-9.3); NEUTROPHILS # (AUTO) 7.8 K/uL (1.8-7.7); NEUTROPHILS % (AUTO) 72.6 % (40.0-70.0); PLATELET COUNT (AUTO) 132 K/uL (130-430); RED BLOOD CELL COUNT(AUTO) 5.22 MIL/uL (4.2-6.2); RED CELL DISTRIBUTION WIDTH 19.1 % (9.0-15.0); WHITE BLOOD COUNT (AUTO) 10.7 K/uL (4.8-10.8)
[2024-05-16 12:15] LABS: ALBUMIN 3.2 g/dL (3.4-4.8); CALCIUM 8.9 mg/dL (8.4-11.0); CREATININE 1.09 mg/dL (0.55-1.30); POTASSIUM 3.9 mmol/L (3.5-5.1); TOTAL BILIRUBIN 2.2 mg/dL (0.0-1.0); TOTAL PROTEIN, SERUM 7.3 g/dL (6.4-8.3)
[2024-05-16] MEDS: LORazepam 2 MG/ML VIAL IVP PRN (20:52)
[2024-05-17] VITALS (8 sets, daily range): BP systolic 113–149; PULSE 93–112; RESP 16–21; TEMP 96.4–98; O2SAT 92–98
[2024-05-17 09:00] LABS: BASOPHILS # (AUTO) 0.2 K/uL (0.0-0.2); BASOPHILS % (AUTO) 1.7 % (0.0-2.0); EOSINOPHILS # (AUTO) 0.3 K/uL (0.0-0.4); EOSINOPHILS % (AUTO) 2.8 % (0.0-4.0); HEMATOCRIT 31.1 % (36-48); HEMOGLOBIN 8.8 g/dL (12.0-16.0); LYMPHOCYTES # (AUTO) 1.9 K/uL (1.0-5.5); LYMPHOCYTES % (AUTO) 19.6 % (20.5-51.5); MEAN CORPUSCULAR HEMOGLOBIN 17 pg (27-31); MEAN CORPUSCULAR HGB CONC 28 % (32-36); MEAN CORPUSCULAR VOLUME 59 fL (79.0-98.0); MONOCYTES # (AUTO) 0.6 K/uL (0.0-1.0); MONOCYTES % (AUTO) 5.9 % (1.7-9.3); NEUTROPHILS # (AUTO) 6.8 K/uL (1.8-7.7); PLATELET COUNT (AUTO) 101 K/uL (130-430); RED CELL DISTRIBUTION WIDTH 19.1 % (9.0-15.0); WHITE BLOOD COUNT (AUTO) 9.7 K/uL (4.8-10.8)
[2024-05-17 09:34] LABS: ALBUMIN 3.1 g/dL (3.4-4.8); CALCIUM 8.3 mg/dL (8.4-11.0); POTASSIUM 3.7 mmol/L (3.5-5.1); TOTAL PROTEIN, SERUM 6.6 g/dL (6.4-8.3)
[2024-05-17] MEDS ORDERED: APIX5TAB4 PO (11:03)
== END 2024-05-17 15:15 | disposition home or self-care (01) | DRG 194 ==
LOC: SED 18:51 → STU 21:07
PROVIDERS: ADMIT Student in an Organized Health Care Education/Training Program; ATTEND Student in an Organized Health Care Education/Training Program
DX: I11.0 Hypertensive heart disease with heart failure (principal); I26.99 Other pulmonary embolism without acute cor pulmonale; J96.00 Acute respiratory failure, unspecified whether with hypoxia or hypercapnia; I50.33 Acute on chronic diastolic (congestive) heart failure; I21.A1 Myocardial infarction type 2; I82.812 Embolism and thrombosis of superficial veins of left lower extremity; F15.129 Other stimulant abuse with intoxication, unspecified; D64.9 Anemia, unspecified; J45.909 Unspecified asthma, uncomplicated; F11.10 Opioid abuse, uncomplicated; I27.20 Pulmonary hypertension, unspecified; Z79.899 Other long term (current) drug therapy; Z88.8 Allergy status to other drugs, medicaments and biological substances; Z59.00 Homelessness unspecified; Z88.0 Allergy status to penicillin
CPT/HCPCS: 36415; 71045; 71275; 80048; 80053; 80074; 80076; 80307; 81001; 81003; 82272; 82550; 83540; 83550; 83605; 83880; 84484; 84703; 85025; 85379; 85730; 86886; 86900; 86901; 87536; 93005; 93306; 93970; 94640; 94760; 96365; 96375; 99291; G0378; J1644; J1650; J1940; J2060; J2270; J2405; J2916; Q9967

== ENCOUNTER 2024-05-25 15:55 | Inpatient (IN) | payer OTHER ==
[~2024-05-25] VITALS: Ht 165.1 cm; Wt 95.1 kg
[~2024-05-25 15:55] MED LIST changes: +APIX5TAB4 PO; -CEPH250C PO; -DOXY100C PO; -SULF1TAB47 PO
[2024-05-25 16:00] VITALS: RESP 22; TEMP 98.3; O2SAT 96
[2024-05-25 16:22] LABS: BLOOD GAS BASE EXCESS -10.5 mmol/L (-2.0-3.0); BLOOD GAS HCO3 15.4 mmol/L (21.0-28.0); BLOOD GAS PCO2 34.4 mmHg (32.0-45.0); BLOOD GAS PO2 60.6 mmHg (83.0-108.0)
[2024-05-25 16:23] LABS: ABG O2 SAT% ESTIMATE 88.2 % (94.0-98.0); ALLEN'S TEST POSITIVE (P)
[2024-05-25] MEDS: *HEPARIN PER PHARMACY XX ONE (16:30)
[2024-05-25] MEDS: ONDANSETRON HCL 4 MG/2 ML VIAL IVP ONE (16:43)
[2024-05-25 17:05] LABS: INR 1.5 (0.8-1.2); PROTHROMBIN TIME 15.1 SECS (9.5-12.5)
[2024-05-25 17:08] LABS: HEMATOCRIT 32.9 % (36-48); HEMOGLOBIN 9.3 g/dL (12.0-16.0); MEAN CORPUSCULAR HEMOGLOBIN 17 pg (27-31); MEAN CORPUSCULAR HGB CONC 29 % (32-36); MEAN CORPUSCULAR VOLUME 61 fL (79.0-98.0); PLATELET COUNT (AUTO) 210 K/uL (130-430); RED BLOOD CELL COUNT(AUTO) 5.43 MIL/uL (4.2-6.2); RED CELL DISTRIBUTION WIDTH 20.7 % (9.0-15.0); WHITE BLOOD COUNT (AUTO) 21.6 K/uL (4.8-10.8)
[2024-05-25 17:15] LABS: SERUM HCG (QUALITATIVE) NEGATIVE (NEGATIVE)
[2024-05-25 17:18] LABS: ALANINE AMINOTRANSFERASE 917 U/L (12-78); ALBUMIN 3.7 g/dL (3.4-4.8); ANION GAP 17 (5-15); ASPARTATE AMINOTRANSFERASE 1221 U/L (10-37); BILIRUBIN,DIRECT 0.9 mg/dL (0.0-0.3); CALCIUM 9.2 mg/dL (8.4-11.0); CARBON DIOXIDE 19 mmol/L (23-29); CHLORIDE 103 mmol/L (98-107); CREATININE 1.85 mg/dL (0.55-1.30); GFR AFRICAN AMERICAN 39 mL/min (>90); GLUCOSE 80 mg/dL (74-106); POTASSIUM 4.9 mmol/L (3.5-5.1); SODIUM SERUM 139 mmol/L (136-145); TOTAL BILIRUBIN 3.4 mg/dL (0.0-1.0); TOTAL PROTEIN, SERUM 8.1 g/dL (6.4-8.3); UREA NITROGEN, BLOOD 30 mg/dL (8-21)
[2024-05-25 17:20] LABS: GFR NON AFRICAN-AMERICAN 32 mL/min (>90)
[2024-05-25] MEDS: NACL 0.9% 1,000 ML IV ONE (17:35)
[2024-05-25] MEDS: HEPARIN 25,000 UNITS/D5W 250ML 250 ML IV ONE (20:29)
[2024-05-25] MEDS: IPRATROPIUM/ALBUTEROL SULFATE 3 ML AMPUL.NEB (DUONEB) INH ONE (21:02)
[2024-05-25 21:34] LABS: BAND % (MANUAL) 5 % (0-6); BASOPHILS % (MANUAL) 0 % (0-2); EOSINOPHILS % (MANUAL) 0 % (0-7); LYMPHOCYTES % (MANUAL) 10 % (20-46); MONOCYTES % (MANUAL) 5 % (0-11)
[2024-05-25 21:35] LABS: ANISOCYTOSIS 2+; HYPOCHROMASIA 2+; POLYCHROMASIA 1+
[2024-05-25 21:36] LABS: OVALOCYTES MODERATE; PLATELET ESTIMATE ADEQUATE (ADEQUATE); TEAR DROP CELLS FEW
[2024-05-25] MEDS: NACL 0.9% 1,000 ML IV SCH (22:30)
[2024-05-25] MEDS ORDERED: NOREPINEPHRINE BITARTRATE 4 MG in NS 246 ML IV PRN ×2 (22:45→23:00)
[2024-05-25 23:40] VITALS: BP_SYST 101; PULSE 105; O2SAT 94
[2024-05-25 23:45] VITALS: BP_SYST 123; PULSE 102; RESP 20; TEMP 98; O2SAT 92
[2024-05-26] VITALS (33 sets, daily range): BP systolic 67–133; PULSE 88–115; RESP 16–31; TEMP 97.5–98.4; O2SAT 89–99
[2024-05-26 03:27] LABS: BASOPHILS % (AUTO) 0.1 % (0.0-2.0); HEMATOCRIT 28.6 % (36-48); HEMOGLOBIN 7.9 g/dL (12.0-16.0); LYMPHOCYTES # (AUTO) 2.1 K/uL (1.0-5.5); LYMPHOCYTES % (AUTO) 9.6 % (20.5-51.5); MEAN CORPUSCULAR HEMOGLOBIN 17 pg (27-31); MEAN CORPUSCULAR HGB CONC 28 % (32-36); MEAN CORPUSCULAR VOLUME 60 fL (79.0-98.0); MONOCYTES # (AUTO) 2.3 K/uL (0.0-1.0); MONOCYTES % (AUTO) 10.3 % (1.7-9.3); NEUTROPHILS # (AUTO) 17.8 K/uL (1.8-7.7); PLATELET COUNT (AUTO) 174 K/uL (130-430); RED BLOOD CELL COUNT(AUTO) 4.78 MIL/uL (4.2-6.2); WHITE BLOOD COUNT (AUTO) 22.3 K/uL (4.8-10.8)
[2024-05-26 03:46] LABS: ALBUMIN 3.3 g/dL (3.4-4.8); CALCIUM 8.3 mg/dL (8.4-11.0); CREATININE 2.2 mg/dL (0.55-1.30); PHOSPHORUS 7.5 mg/dL (2.7-4.5); POTASSIUM 5.1 mmol/L (3.5-5.1); TOTAL BILIRUBIN 3.9 mg/dL (0.0-1.0); TOTAL PROTEIN, SERUM 7.1 g/dL (6.4-8.3)
[2024-05-26] MEDS: HEPARIN SODIUM,PORCINE 2000 UNITS/0.4 ML BOLUS IVP PRN (04:26)
[2024-05-26] MEDS: IPRATROPIUM/ALBUTEROL SULFATE 3 ML AMPUL.NEB (DUONEB) INH SCH (07:00)
[2024-05-26] MEDS: IPRATROPIUM/ALBUTEROL SULFATE 3 ML AMPUL.NEB (DUONEB) ONE (07:48)
[2024-05-26] MEDS: FOLIC ACID 1 MG TABLET PO SCH (11:39)
[2024-05-26] MEDS: NICOTINE 21 MG/24 HR PATCH.TD24 TD SCH (11:40)
[2024-05-26] MEDS: HEPARIN SODIUM,PORCINE 3000 UNITS/0.6 ML BOLUS IVP PRN (11:49)
[2024-05-26] MEDS: FUROSEMIDE 40 MG/4 ML VIAL IVP ONE (12:01)
[2024-05-26] MEDS: FUROSEMIDE 40 MG/4 ML VIAL ONE (12:07)
[2024-05-26] MEDS: *HEPARIN PER PHARMACY XX ONE (13:15)
[2024-05-26] MEDS: LORazepam 2 MG/ML VIAL IVP PRN (13:16)
[2024-05-26 14:06] LABS: BILIRUBIN,URINE NEGATIVE (NEGATIVE); CLARITY/URINE CLEAR (CLEAR); COLOR,URINE YELLOW (YELLOW); GLUCOSE,URINE NEGATIVE (NEGATIVE); KETONES,URINE NEGATIVE (NEGATIVE); LEUKOCYTE ESTERASE ,URINE NEGATIVE (NEGATIVE); NITRITE, URINE NEGATIVE (NEGATIVE); PROTEIN URINE TRACE (NEGATIVE)
[2024-05-26 14:14] LABS: HCG,QUAL RESULT NEGATIVE (NEGATIVE)
[2024-05-26 14:19] LABS: BARBITURATE, URINE NEGATIVE (NEG <=200); BENZODIAZEPINE, URINE NEGATIVE (NEG <=150); CANNABINOID, URINE POSITIVE (NEG <=50); COCAINE, URINE NEGATIVE (NEG <=150); METHAMPHETAMINES SCREEN,URINE POSITIVE (NEG <=500); OPIATE, URINE NEGATIVE (NEG <=100); PHENCYCLIDINE SCREEN,URINE NEGATIVE (NEG <=25); UR TRICYCLIC ANTIDEPRESSANTS NEGATIVE (NEG <=300); URINE AMPHETAMINE POSITIVE (NEG <=500); URINE METHADONE NEGATIVE (NEG <=200); URINE OXYCODONE SCREEN NEGATIVE (NEG <=100)
[2024-05-26 14:28] LABS: BLOOD, URINE TRACE (NEGATIVE)
[2024-05-26 14:29] LABS: BACTERIA,URINE FEW /HPF (None Seen); RBC,URINE NONE SEEN /HPF (0-3); WBC,URINE 0-3 /HPF (0-3)
[2024-05-26 14:30] LABS: MUCUS,URINE None Seen /LPF (None Seen)
[2024-05-26] MEDS: SOD FERRIC GLUC COMPLEX/SUC 125 MG in NS 100 ML IV SCH (15:05)
[2024-05-26 18:53] LABS: INR 1.7 (0.8-1.2); PROTHROMBIN TIME 17.7 SECS (9.5-12.5)
[2024-05-26 18:56] LABS: ACETAMINOPHEN < 1 ug/mL (1-30); SALICYLATE < 1 mg/dL (3-30)
[2024-05-26] MEDS: HEPARIN 25,000 UNITS in 250 ML PREMIX IV PRN (22:27)
[2024-05-26] MEDS: MORPHINE 2 MG/ML INJ. SYRINGE IVP PRN (22:51)
[2024-05-27] VITALS (33 sets, daily range): BP systolic 100–159; PULSE 97–124; RESP 13–33; TEMP 97.2–98.5; O2SAT 83–100
[2024-05-27 06:35] LABS: BASOPHILS # (AUTO) 0.1 K/uL (0.0-0.2); BASOPHILS % (AUTO) 0.4 % (0.0-2.0); EOSINOPHILS # (AUTO) 0.1 K/uL (0.0-0.4); EOSINOPHILS % (AUTO) 0.5 % (0.0-4.0); HEMATOCRIT 30.8 % (36-48); HEMOGLOBIN 8.3 g/dL (12.0-16.0); LYMPHOCYTES # (AUTO) 2.1 K/uL (1.0-5.5); LYMPHOCYTES % (AUTO) 13.8 % (20.5-51.5); MEAN CORPUSCULAR HEMOGLOBIN 17 pg (27-31); MEAN CORPUSCULAR HGB CONC 27 % (32-36); MEAN CORPUSCULAR VOLUME 61 fL (79.0-98.0); MONOCYTES # (AUTO) 1.4 K/uL (0.0-1.0); MONOCYTES % (AUTO) 9.1 % (1.7-9.3); NEUTROPHILS # (AUTO) 11.5 K/uL (1.8-7.7); NEUTROPHILS % (AUTO) 76.2 % (40.0-70.0); PLATELET COUNT (AUTO) 176 K/uL (130-430); RED BLOOD CELL COUNT(AUTO) 5.03 MIL/uL (4.2-6.2); RED CELL DISTRIBUTION WIDTH 21.7 % (9.0-15.0); WHITE BLOOD COUNT (AUTO) 15.1 K/uL (4.8-10.8)
[2024-05-27 06:59] LABS: ALBUMIN 3.4 g/dL (3.4-4.8); CALCIUM 8.1 mg/dL (8.4-11.0); CREATININE 1.46 mg/dL (0.55-1.30); POTASSIUM 4.6 mmol/L (3.5-5.1); TOTAL PROTEIN, SERUM 7.1 g/dL (6.4-8.3)
[2024-05-27 10:48] LABS: INR 1.7 (0.8-1.2); PROTHROMBIN TIME 17.2 SECS (9.5-12.5)
[2024-05-27] MEDS: FUROSEMIDE 40 MG/4 ML VIAL IVP SCH (15:40)
[2024-05-27 21:12] LABS: BILIRUBIN,DIRECT 1.1 mg/dL (0.0-0.3); TOTAL BILIRUBIN 3.5 mg/dL (0.0-1.0); TOTAL PROTEIN, SERUM 6.7 g/dL (6.4-8.3)
[2024-05-28] VITALS (30 sets, daily range): BP systolic 103–143; PULSE 78–114; RESP 18–38; TEMP 97.5–98.3; O2SAT 89–99
[2024-05-28] MEDS: IPRATROPIUM/ALBUTEROL SULFATE 3 ML AMPUL.NEB (DUONEB) INH PRN (05:25)
[2024-05-28 06:50] LABS: BASOPHILS # (AUTO) 0.1 K/uL (0.0-0.2); BASOPHILS % (AUTO) 0.6 % (0.0-2.0); EOSINOPHILS # (AUTO) 0.2 K/uL (0.0-0.4); EOSINOPHILS % (AUTO) 1.2 % (0.0-4.0); HEMATOCRIT 27.9 % (36-48); LYMPHOCYTES # (AUTO) 2.8 K/uL (1.0-5.5); LYMPHOCYTES % (AUTO) 16.5 % (20.5-51.5); MEAN CORPUSCULAR HEMOGLOBIN 17 pg (27-31); MEAN CORPUSCULAR HGB CONC 29 % (32-36); MEAN CORPUSCULAR VOLUME 60 fL (79.0-98.0); MONOCYTES # (AUTO) 1.4 K/uL (0.0-1.0); MONOCYTES % (AUTO) 8.3 % (1.7-9.3); NEUTROPHILS # (AUTO) 12.6 K/uL (1.8-7.7); PLATELET COUNT (AUTO) 156 K/uL (130-430); RED BLOOD CELL COUNT(AUTO) 4.68 MIL/uL (4.2-6.2); RED CELL DISTRIBUTION WIDTH 20.9 % (9.0-15.0); WHITE BLOOD COUNT (AUTO) 17.2 K/uL (4.8-10.8)
[2024-05-28 07:07] LABS: ALBUMIN 2.9 g/dL (3.4-4.8); CALCIUM 7.8 mg/dL (8.4-11.0); CREATININE 0.87 mg/dL (0.55-1.30); POTASSIUM 3.8 mmol/L (3.5-5.1); TOTAL BILIRUBIN 3.5 mg/dL (0.0-1.0); TOTAL PROTEIN, SERUM 6.3 g/dL (6.4-8.3)
[2024-05-28 07:46] LABS: NEUTROPHILS % (AUTO) 73.4 % (40.0-70.0)
[2024-05-28] MEDS: FUROSEMIDE 40 MG/4 ML VIAL IVP SCH (09:00)
[2024-05-28 10:57] LABS: ABG O2 SAT% ESTIMATE 95.5 % (94.0-98.0); BLOOD GAS BASE EXCESS 1.2 mmol/L (-2.0-3.0); BLOOD GAS HCO3 24.6 mmol/L (21.0-28.0); BLOOD GAS PCO2 33.9 mmHg (32.0-45.0); BLOOD GAS PH 7.478 (7.350-7.450); BLOOD GAS PO2 71.2 mmHg (83.0-108.0)
[2024-05-28 11:03] LABS: ALLEN'S TEST POSITIVE (P)
[2024-05-28] MEDS: ONDANSETRON HCL 4 MG/2 ML VIAL IVP PRN (20:43)
[2024-05-29] VITALS (29 sets, daily range): BP systolic 92–137; PULSE 81–113; RESP 16–34; TEMP 97.6–98.7; O2SAT 90–99
[2024-05-29 06:33] LABS: BASOPHILS # (AUTO) 0.1 K/uL (0.0-0.2); BASOPHILS % (AUTO) 0.5 % (0.0-2.0); EOSINOPHILS # (AUTO) 0.3 K/uL (0.0-0.4); HEMATOCRIT 28.5 % (36-48); HEMOGLOBIN 8.2 g/dL (12.0-16.0); LYMPHOCYTES % (AUTO) 19.7 % (20.5-51.5); MEAN CORPUSCULAR HEMOGLOBIN 17 pg (27-31); MEAN CORPUSCULAR HGB CONC 29 % (32-36); MEAN CORPUSCULAR VOLUME 60 fL (79.0-98.0); MONOCYTES # (AUTO) 1.6 K/uL (0.0-1.0); MONOCYTES % (AUTO) 10.8 % (1.7-9.3); NEUTROPHILS # (AUTO) 10.2 K/uL (1.8-7.7); PLATELET COUNT (AUTO) 172 K/uL (130-430); RED BLOOD CELL COUNT(AUTO) 4.72 MIL/uL (4.2-6.2); RED CELL DISTRIBUTION WIDTH 21.8 % (9.0-15.0); WHITE BLOOD COUNT (AUTO) 15.2 K/uL (4.8-10.8)
[2024-05-29 07:02] LABS: ALBUMIN 2.9 g/dL (3.4-4.8); CALCIUM 7.9 mg/dL (8.4-11.0); CREATININE 0.88 mg/dL (0.55-1.30); POTASSIUM 3.8 mmol/L (3.5-5.1); TOTAL PROTEIN, SERUM 6.6 g/dL (6.4-8.3)
[2024-05-29 08:01] LABS: TOTAL BILIRUBIN 3.4 mg/dL (0.0-1.0)
[2024-05-30] VITALS (29 sets, daily range): BP systolic 96–129; PULSE 89–101; RESP 14–32; TEMP 97.9–98.8; O2SAT 26–97
[2024-05-30 06:56] LABS: BASOPHILS # (AUTO) 0.1 K/uL (0.0-0.2); BASOPHILS % (AUTO) 0.9 % (0.0-2.0); EOSINOPHILS # (AUTO) 0.4 K/uL (0.0-0.4); EOSINOPHILS % (AUTO) 3.3 % (0.0-4.0); HEMOGLOBIN 8.1 g/dL (12.0-16.0); LYMPHOCYTES # (AUTO) 2.7 K/uL (1.0-5.5); LYMPHOCYTES % (AUTO) 22.3 % (20.5-51.5); MEAN CORPUSCULAR HEMOGLOBIN 18 pg (27-31); MEAN CORPUSCULAR HGB CONC 29 % (32-36); MEAN CORPUSCULAR VOLUME 60 fL (79.0-98.0); MONOCYTES # (AUTO) 1.2 K/uL (0.0-1.0); MONOCYTES % (AUTO) 9.5 % (1.7-9.3); NEUTROPHILS # (AUTO) 7.9 K/uL (1.8-7.7); PLATELET COUNT (AUTO) 176 K/uL (130-430); RED BLOOD CELL COUNT(AUTO) 4.64 MIL/uL (4.2-6.2); RED CELL DISTRIBUTION WIDTH 21.3 % (9.0-15.0); WHITE BLOOD COUNT (AUTO) 12.3 K/uL (4.8-10.8)
[2024-05-30 07:57] LABS: ALBUMIN 2.8 g/dL (3.4-4.8); CALCIUM 8.1 mg/dL (8.4-11.0); CREATININE 0.86 mg/dL (0.55-1.30); POTASSIUM 3.3 mmol/L (3.5-5.1); TOTAL BILIRUBIN 3.7 mg/dL (0.0-1.0); TOTAL PROTEIN, SERUM 6.5 g/dL (6.4-8.3)
[2024-05-30 08:06] LABS: IMMUNOGLOBULIN G, SERUM 1568 mg/dL (586-1602)
[2024-05-30] MEDS: HYDROcodone/ACETAMIN 5-325 MG TAB (NORCO/ VICODIN) PO PRN (09:55)
[2024-05-30] MEDS: POTASSIUM CHLORIDE 40 MEQ in 0.45% NS 250 ML IV ONE (09:56)
[2024-05-30 15:07] LABS: ANTI NUCLEAR AB WITH REFLEX Negative (Negative)
[2024-05-30] MEDS: DOCUSATE SODIUM 100 MG CAPSULE PO SCH (23:07)
[2024-05-31] VITALS (33 sets, daily range): BP systolic 96–127; PULSE 67–106; RESP 9–40; TEMP 97.9–98.7; O2SAT 88–100
[2024-05-31 06:48] LABS: BASOPHILS # (AUTO) 0.1 K/uL (0.0-0.2); BASOPHILS % (AUTO) 0.8 % (0.0-2.0); EOSINOPHILS # (AUTO) 0.5 K/uL (0.0-0.4); EOSINOPHILS % (AUTO) 4.2 % (0.0-4.0); HEMATOCRIT 29.3 % (36-48); HEMOGLOBIN 8.6 g/dL (12.0-16.0); LYMPHOCYTES # (AUTO) 2.6 K/uL (1.0-5.5); MEAN CORPUSCULAR HEMOGLOBIN 18 pg (27-31); MEAN CORPUSCULAR HGB CONC 30 % (32-36); MEAN CORPUSCULAR VOLUME 61 fL (79.0-98.0); MONOCYTES # (AUTO) 0.9 K/uL (0.0-1.0); MONOCYTES % (AUTO) 8.2 % (1.7-9.3); NEUTROPHILS # (AUTO) 6.8 K/uL (1.8-7.7); NEUTROPHILS % (AUTO) 62.8 % (40.0-70.0); PLATELET COUNT (AUTO) 180 K/uL (130-430); RED BLOOD CELL COUNT(AUTO) 4.78 MIL/uL (4.2-6.2); RED CELL DISTRIBUTION WIDTH 22.3 % (9.0-15.0); WHITE BLOOD COUNT (AUTO) 10.9 K/uL (4.8-10.8)
[2024-05-31 07:14] LABS: ALBUMIN 2.7 g/dL (3.4-4.8); CALCIUM 8.4 mg/dL (8.4-11.0); CREATININE 0.93 mg/dL (0.55-1.30); POTASSIUM 3.1 mmol/L (3.5-5.1); TOTAL BILIRUBIN 2.4 mg/dL (0.0-1.0); TOTAL PROTEIN, SERUM 6.6 g/dL (6.4-8.3)
[2024-05-31] MEDS: PANTOPRAZOLE SODIUM 40 MG TAB PO SCH (08:20)
[2024-05-31] MEDS: POTASSIUM CHLORIDE 60 MEQ in NS 500 ML IV ONE (09:26)
[2024-05-31 14:06] LABS: ANTI-SMOOTH MUSCLE AB 7 Units (0-19)
[2024-05-31] MEDS: SILDENAFIL CITRATE 20 MG TABLET PO ONE (17:28)
[2024-05-31] MEDS: traZODone HCL 50 MG TABLET (DESYREL) PO SCH (21:12)
[2024-05-31] MEDS: FUROSEMIDE 40 MG/4 ML VIAL IVP SCH (21:12)
[2024-05-31] MEDS: SILDENAFIL CITRATE 20 MG TABLET PO SCH (21:13)
[2024-06-01] VITALS (26 sets, daily range): BP systolic 85–135; PULSE 84–106; RESP 13–33; TEMP 97.5–97.8; O2SAT 83–97
[2024-06-01 06:58] LABS: BASOPHILS # (AUTO) 0.1 K/uL (0.0-0.2); BASOPHILS % (AUTO) 0.8 % (0.0-2.0); EOSINOPHILS # (AUTO) 0.6 K/uL (0.0-0.4); HEMATOCRIT 31.3 % (36-48); HEMOGLOBIN 9.3 g/dL (12.0-16.0); LYMPHOCYTES # (AUTO) 2.3 K/uL (1.0-5.5); LYMPHOCYTES % (AUTO) 23.6 % (20.5-51.5); MEAN CORPUSCULAR HEMOGLOBIN 18 pg (27-31); MEAN CORPUSCULAR HGB CONC 30 % (32-36); MEAN CORPUSCULAR VOLUME 62 fL (79.0-98.0); MONOCYTES # (AUTO) 0.8 K/uL (0.0-1.0); MONOCYTES % (AUTO) 7.9 % (1.7-9.3); NEUTROPHILS # (AUTO) 6.1 K/uL (1.8-7.7); NEUTROPHILS % (AUTO) 61.7 % (40.0-70.0); PLATELET COUNT (AUTO) 180 K/uL (130-430); RED BLOOD CELL COUNT(AUTO) 5.09 MIL/uL (4.2-6.2); RED CELL DISTRIBUTION WIDTH 22.6 % (9.0-15.0); WHITE BLOOD COUNT (AUTO) 9.9 K/uL (4.8-10.8)
[2024-06-01 07:12] LABS: ALBUMIN 2.9 g/dL (3.4-4.8); BILIRUBIN,DIRECT 0.6 mg/dL (0.0-0.3); CALCIUM 8.9 mg/dL (8.4-11.0); CREATININE 0.88 mg/dL (0.55-1.30); POTASSIUM 3.1 mmol/L (3.5-5.1); TOTAL BILIRUBIN 2.5 mg/dL (0.0-1.0); TOTAL PROTEIN, SERUM 6.9 g/dL (6.4-8.3)
[2024-06-01 09:07] LABS: HEPATITIS B SURFACE AG Negative (Negative); HEPATITIS C VIRUS AB Non Reactive (Non Reactive)
[2024-06-01] MEDS: POTASSIUM CHLORIDE 20 MEQ/PKT PACKET PO ONE (11:00)
[2024-06-01] MEDS: APIXABAN 2.5 MG TABLET PO ONE (14:25)
[2024-06-01] MEDS: POTASSIUM CHLORIDE 20 MEQ TABLET.ER PO SCH (20:45)
[2024-06-01] MEDS: MIRTAZAPINE 15 MG TABLET PO SCH (20:45)
[2024-06-01] MEDS: APIXABAN 2.5 MG TABLET PO SCH (20:46)
[2024-06-02] VITALS (11 sets, daily range): BP systolic 104–120; PULSE 66–114; RESP 16–18; TEMP 97.6–98.2; O2SAT 95–100
[2024-06-02 06:40] LABS: BASOPHILS # (AUTO) 0.1 K/uL (0.0-0.2); BASOPHILS % (AUTO) 0.6 % (0.0-2.0); EOSINOPHILS # (AUTO) 0.4 K/uL (0.0-0.4); EOSINOPHILS % (AUTO) 3.9 % (0.0-4.0); HEMATOCRIT 34.7 % (36-48); HEMOGLOBIN 10.2 g/dL (12.0-16.0); LYMPHOCYTES # (AUTO) 1.8 K/uL (1.0-5.5); LYMPHOCYTES % (AUTO) 16.8 % (20.5-51.5); MEAN CORPUSCULAR HEMOGLOBIN 19 pg (27-31); MEAN CORPUSCULAR HGB CONC 30 % (32-36); MEAN CORPUSCULAR VOLUME 63 fL (79.0-98.0); MONOCYTES # (AUTO) 0.7 K/uL (0.0-1.0); MONOCYTES % (AUTO) 6.8 % (1.7-9.3); NEUTROPHILS # (AUTO) 7.6 K/uL (1.8-7.7); NEUTROPHILS % (AUTO) 71.9 % (40.0-70.0); PLATELET COUNT (AUTO) 164 K/uL (130-430); WHITE BLOOD COUNT (AUTO) 10.6 K/uL (4.8-10.8)
[2024-06-02 06:42] LABS: INR 1.2 (0.8-1.2); PROTHROMBIN TIME 12.4 SECS (9.5-12.5)
[2024-06-02 06:50] LABS: CALCIUM 9.1 mg/dL (8.4-11.0); CREATININE 1.19 mg/dL (0.55-1.30); POTASSIUM 3.5 mmol/L (3.5-5.1)
[2024-06-02] MEDS: levoFLOXacin 500 MG TABLET PO ONE (11:18)
[2024-06-03] VITALS (12 sets, daily range): BP systolic 89–120; PULSE 82–105; RESP 18–20; TEMP 97.9–98.8; O2SAT 94–99
[2024-06-03 07:21] LABS: BASOPHILS # (AUTO) 0.1 K/uL (0.0-0.2); BASOPHILS % (AUTO) 0.8 % (0.0-2.0); EOSINOPHILS # (AUTO) 0.5 K/uL (0.0-0.4); HEMATOCRIT 35.8 % (36-48); HEMOGLOBIN 10.8 g/dL (12.0-16.0); LYMPHOCYTES # (AUTO) 2.1 K/uL (1.0-5.5); LYMPHOCYTES % (AUTO) 20.7 % (20.5-51.5); MEAN CORPUSCULAR HEMOGLOBIN 19 pg (27-31); MEAN CORPUSCULAR HGB CONC 30 % (32-36); MEAN CORPUSCULAR VOLUME 63 fL (79.0-98.0); MONOCYTES # (AUTO) 0.7 K/uL (0.0-1.0); NEUTROPHILS # (AUTO) 6.6 K/uL (1.8-7.7); NEUTROPHILS % (AUTO) 66.5 % (40.0-70.0); PLATELET COUNT (AUTO) 169 K/uL (130-430); RED BLOOD CELL COUNT(AUTO) 5.65 MIL/uL (4.2-6.2)
[2024-06-03 07:30] LABS: CALCIUM 9.4 mg/dL (8.4-11.0); CREATININE 1.06 mg/dL (0.55-1.30)
[2024-06-03] MEDS: POTASSIUM CHLORIDE 20 MEQ TABLET.ER PO SCH (12:04)
[2024-06-03] MEDS: ACETAMINOPHEN 325 MG TABLET PO PRN (20:34)
[2024-06-04] VITALS (12 sets, daily range): BP systolic 106–116; PULSE 82–107; RESP 16–18; TEMP 98–98.8; O2SAT 92–99
[2024-06-04 09:54] LABS: ALBUMIN 3.4 g/dL (3.4-4.8); CALCIUM 9.5 mg/dL (8.4-11.0); CREATININE 1.23 mg/dL (0.55-1.30); POTASSIUM 4.2 mmol/L (3.5-5.1); TOTAL BILIRUBIN 2.1 mg/dL (0.0-1.0); TOTAL PROTEIN, SERUM 8.4 g/dL (6.4-8.3)
[2024-06-04 10:28] LABS: BASOPHILS # (AUTO) 0.1 K/uL (0.0-0.2); BASOPHILS % (AUTO) 1.2 % (0.0-2.0); EOSINOPHILS # (AUTO) 0.4 K/uL (0.0-0.4); HEMATOCRIT 38.1 % (36-48); HEMOGLOBIN 11.4 g/dL (12.0-16.0); LYMPHOCYTES # (AUTO) 1.5 K/uL (1.0-5.5); LYMPHOCYTES % (AUTO) 16.5 % (20.5-51.5); MEAN CORPUSCULAR HEMOGLOBIN 19 pg (27-31); MEAN CORPUSCULAR HGB CONC 30 % (32-36); MEAN CORPUSCULAR VOLUME 64 fL (79.0-98.0); MONOCYTES # (AUTO) 0.7 K/uL (0.0-1.0); MONOCYTES % (AUTO) 8.3 % (1.7-9.3); NEUTROPHILS # (AUTO) 6.3 K/uL (1.8-7.7); PLATELET COUNT (AUTO) 157 K/uL (130-430); RED BLOOD CELL COUNT(AUTO) 5.93 MIL/uL (4.2-6.2); RED CELL DISTRIBUTION WIDTH 32.3 % (9.0-15.0); WHITE BLOOD COUNT (AUTO) 8.9 K/uL (4.8-10.8)
[2024-06-05] VITALS (10 sets, daily range): BP systolic 94–122; PULSE 94–111; RESP 18; TEMP 96.8–98.9; O2SAT 92–98
[2024-06-05] MEDS: LORazepam 2 MG/ML VIAL IVP PRN (01:00)
[2024-06-05 11:18] LABS: BASOPHILS # (AUTO) 0.1 K/uL (0.0-0.2); BASOPHILS % (AUTO) 1.6 % (0.0-2.0); EOSINOPHILS # (AUTO) 0.3 K/uL (0.0-0.4); EOSINOPHILS % (AUTO) 3.1 % (0.0-4.0); HEMATOCRIT 39.5 % (36-48); HEMOGLOBIN 12.1 g/dL (12.0-16.0); LYMPHOCYTES # (AUTO) 1.6 K/uL (1.0-5.5); LYMPHOCYTES % (AUTO) 18.4 % (20.5-51.5); MEAN CORPUSCULAR HEMOGLOBIN 20 pg (27-31); MEAN CORPUSCULAR HGB CONC 31 % (32-36); MEAN CORPUSCULAR VOLUME 64 fL (79.0-98.0); MONOCYTES # (AUTO) 0.8 K/uL (0.0-1.0); MONOCYTES % (AUTO) 9.2 % (1.7-9.3); NEUTROPHILS % (AUTO) 67.7 % (40.0-70.0); PLATELET COUNT (AUTO) 171 K/uL (130-430); RED BLOOD CELL COUNT(AUTO) 6.15 MIL/uL (4.2-6.2); RED CELL DISTRIBUTION WIDTH 32.5 % (9.0-15.0); WHITE BLOOD COUNT (AUTO) 8.9 K/uL (4.8-10.8)
[2024-06-05 11:42] LABS: ALBUMIN 3.9 g/dL (3.4-4.8); CALCIUM 9.5 mg/dL (8.4-11.0); CREATININE 1.07 mg/dL (0.55-1.30); POTASSIUM 3.7 mmol/L (3.5-5.1); TOTAL BILIRUBIN 1.5 mg/dL (0.0-1.0); TOTAL PROTEIN, SERUM 8.9 g/dL (6.4-8.3)
[2024-06-05 12:13] LABS: ANISOCYTOSIS 3+; HYPOCHROMASIA 2+; OVALOCYTES FEW
[2024-06-06] VITALS: BP_SYST 112; PULSE 98; RESP 18; TEMP 98.1; O2SAT 95
[2024-06-06 06:08] LABS: BASOPHILS # (AUTO) 0.1 K/uL (0.0-0.2); BASOPHILS % (AUTO) 1.1 % (0.0-2.0); EOSINOPHILS # (AUTO) 0.3 K/uL (0.0-0.4); HEMATOCRIT 37.7 % (36-48); HEMOGLOBIN 11.2 g/dL (12.0-16.0); LYMPHOCYTES # (AUTO) 1.7 K/uL (1.0-5.5); LYMPHOCYTES % (AUTO) 21.2 % (20.5-51.5); MEAN CORPUSCULAR HEMOGLOBIN 19 pg (27-31); MEAN CORPUSCULAR HGB CONC 30 % (32-36); MEAN CORPUSCULAR VOLUME 65 fL (79.0-98.0); MONOCYTES # (AUTO) 0.7 K/uL (0.0-1.0); MONOCYTES % (AUTO) 8.7 % (1.7-9.3); NEUTROPHILS # (AUTO) 5.3 K/uL (1.8-7.7); PLATELET COUNT (AUTO) 164 K/uL (130-430); RED BLOOD CELL COUNT(AUTO) 5.77 MIL/uL (4.2-6.2); RED CELL DISTRIBUTION WIDTH 33.2 % (9.0-15.0); WHITE BLOOD COUNT (AUTO) 8.1 K/uL (4.8-10.8)
[2024-06-06 06:40] LABS: ALBUMIN 3.1 g/dL (3.4-4.8); CALCIUM 9.5 mg/dL (8.4-11.0); CREATININE 0.99 mg/dL (0.55-1.30); POTASSIUM 4.1 mmol/L (3.5-5.1); TOTAL BILIRUBIN 1.4 mg/dL (0.0-1.0); TOTAL PROTEIN, SERUM 7.7 g/dL (6.4-8.3)
[2024-06-06 07:17] VITALS: O2SAT 93
[2024-06-06 08:05] VITALS: BP_SYST 117; PULSE 65; RESP 17; TEMP 98.4; O2SAT 94
[2024-06-06] MEDS ORDERED: SILD20TA PO (11:15)
[2024-06-06] MEDS ORDERED: MIRT-91 PO (11:15)
[2024-06-06] MEDS ORDERED: APIX2.5T PO (11:15)
[2024-06-06] MEDS ORDERED: FURO10VI27 IVP (11:15)
[2024-06-06] MEDS ORDERED: FOLI-43 PO (11:15)
[2024-06-06] MEDS ORDERED: ACET325T PO (11:15)
[2024-06-06] MEDS ORDERED: POTA-197 PO (11:26)
[2024-06-06 11:35] VITALS: O2SAT 94
[2024-06-06 12:55] VITALS: BP_SYST 109; PULSE 101; RESP 20; TEMP 98.5; O2SAT 95
[2024-06-06 14:44] VITALS: BP_SYST 109; PULSE 101; RESP 20; TEMP 98.5; O2SAT 95
== END 2024-06-06 13:30 | disposition home or self-care (01) | DRG 720 ==
LOC: SED 15:55 → SIC 22:30 → STU 06-01 15:42 → SMU 06-04 22:30
PROVIDERS: ADMIT Student in an Organized Health Care Education/Training Program; ATTEND Student in an Organized Health Care Education/Training Program
PROC: 5A09557 Assistance with Respiratory Ventilation, Greater than 96 Consecutive Hours, Continuous Positive Airway Pressure (ICD-10-PCS; principal; 2024-05-25)
PROC: 02HV33Z Insertion of Infusion Device into Superior Vena Cava, Percutaneous Approach (ICD-10-PCS; 2024-05-27)
PROC: 5A0935A Assistance with Respiratory Ventilation, Less than 24 Consecutive Hours, High Flow/Velocity Cannula (ICD-10-PCS; 2024-06-01)
PROC: 5A0935A Assistance with Respiratory Ventilation, Less than 24 Consecutive Hours, High Flow/Velocity Cannula (ICD-10-PCS; 2024-06-02)
PROC: 5A0935A Assistance with Respiratory Ventilation, Less than 24 Consecutive Hours, High Flow/Velocity Cannula (ICD-10-PCS; 2024-06-03)
PROC: 5A0935A Assistance with Respiratory Ventilation, Less than 24 Consecutive Hours, High Flow/Velocity Cannula (ICD-10-PCS; 2024-06-04)
DX: A41.9 Sepsis, unspecified organism (principal); I26.99 Other pulmonary embolism without acute cor pulmonale; J96.01 Acute respiratory failure with hypoxia; K72.00 Acute and subacute hepatic failure without coma; I50.43 Acute on chronic combined systolic (congestive) and diastolic (congestive) heart failure; J18.9 Pneumonia, unspecified organism; I27.29 Other secondary pulmonary hypertension; I13.0 Hypertensive heart and chronic kidney disease with heart failure and stage 1 through stage 4 chronic kidney disease, or unspecified chronic kidney disease; Z20.822 Contact with and (suspected) exposure to COVID-19; E66.9 Obesity, unspecified; D50.0 Iron deficiency anemia secondary to blood loss (chronic); I42.9 Cardiomyopathy, unspecified; N18.9 Chronic kidney disease, unspecified; F15.90 Other stimulant use, unspecified, uncomplicated; Z59.00 Homelessness unspecified; Z80.3 Family history of malignant neoplasm of breast; Z91.199 Patient's noncompliance with other medical treatment and regimen due to unspecified reason; Z86.711 Personal history of pulmonary embolism; Z79.899 Other long term (current) drug therapy; Z79.51 Long term (current) use of inhaled steroids; Z79.01 Long term (current) use of anticoagulants; Z88.0 Allergy status to penicillin; Z98.891 History of uterine scar from previous surgery; Z68.34 Body mass index [BMI] 34.0-34.9, adult
CPT/HCPCS: 36415; 36600; 71045; 76700; 80048; 80053; 80076; 80307; 81000; 81001; 81015; 82140; 82784; 82803; 83516; 83605; 83615; 83735; 83880; 84100; 84484; 84703; 85007; 85025; 85027; 85379; 85610; 85730; 86038; 86706; 86803; 86886; 86900; 86901; 87040; 87081; 87340; 92610-GN; 93005; 93306; 94070; 94640; 94760; 97110-GP; 97116-GP; 97530-GP; 99285; G0378; G0480; G0481; J1644; J1940; J1956; J2060; J2270; J2405; J2916; J3480; J7030; J7040